=== PATIENT | female | born 2000 | race Caucasian/White ===

== ENCOUNTER 2018-03-01 22:44 | Emergency (ER) | payer OTHER ==
[~2018-03-01] VITALS: Ht 152.4 cm; Wt 70.0 kg
[2018-03-01 23:23] LABS: HEMOGLOBIN 13.7 G/DL (11.9-15.5); MCH 29.2 PG (29.0-34.0); MCHC 34.3 G/DL (30.0-36.0); MCV 85.3 FL (83-99); PLATELET COUNT 210 K/uL (156-360); RBC DIS.WIDTH-CV 12.5 % (11.8-14.6); RBC DIS.WIDTH-SD 38.5 % (39-53); RED BLOOD COUNT 4.69 M/uL (3.80-5.20); WHITE BLOOD COUNT 7.8 K/uL (4.1-10.2)
[2018-03-01 23:38] LABS: ALBUMIN 4.3 g/dL (3.2-4.8); CHLORIDE 107 mEq/L (99-109); POTASSIUM 3.6 mEq/L (3.7-5.4); SODIUM 140 mEq/L (136-147)
[2018-03-01 23:40] LABS: GLUCOSE 103 mg/dL (70-99); TOTAL PROTEIN 7.1 g/dL (6.4-8.3)
[2018-03-01 23:42] LABS: TOTAL BILIRUBIN 0.3 mg/dL (0.0-1.0)
[2018-03-01 23:43] LABS: SERUM ETHYL ALCOHOL < 10 mg/dL
[2018-03-01 23:44] LABS: ALKALINE PHOSPHATASE 88 IU/L (3-129); CREATININE 0.8 mg/dL (0.6-1.3); GFR ESTIMATE (CALCULATED) > 59 mL/min/
[2018-03-01 23:45] LABS: AST (GOT) 21 IU/L (2-34); UREA NITROGEN (BUN) 21 mg/dL (9-23)
[2018-03-01 23:47] LABS: ALT (GPT) 18 IU/L (3-49)
[2018-03-02] MEDS ORDERED: ATARAX,VISTARIL25 MG PO (00:55)
[2018-03-02 00:57] VITALS: BP 112/64
[2018-03-02 01:06] LABS: AMPHETAMINE NEGATIVE (500 ng/mL); BARBITURATES NEGATIVE (200 ng/mL); BENZODIAZEPINES NEGATIVE (150 ng/mL); BUPRENORPHINE NEGATIVE (10 ng/mL); COCAINE NEGATIVE (150 ng/mL); METHADONE NEGATIVE (200 ng/mL); METHAMPHETAMINE NEGATIVE (500 ng/mL); OPIATES (MORPHINE) NEGATIVE (100 ng/mL); OXYCODONE NEGATIVE (100 ng/mL); PHENCYCLIDINE NEGATIVE (25 ng/mL); PROPOXYPHENE NEGATIVE (300 ng/mL); THC CANNABINOIDS NEGATIVE (50 ng/mL); TRICYCLIC ANTIDEPRESSANTS NEGATIVE (300 ng/mL)
== END 2018-03-02 01:25 | disposition home or self-care (01) ==
LOC: EME 22:44
PROVIDERS: Emergency Medicine
DX: F41.9 Anxiety disorder, unspecified (principal); T42.4X6A Underdosing of benzodiazepines, initial encounter; Z91.128 Patient's intentional underdosing of medication regimen for other reason
CPT/HCPCS: 80053; 81025; 85027; 99281; 99283; G0480; Q0177